=== PATIENT | female | born 1960 | race Caucasian/White ===

== ENCOUNTER 2019-08-07 13:04 | Emergency (ER) | payer OTHER ==
[~2019-08-07] VITALS: Ht 165.1 cm; Wt 54.4 kg
[~2019-08-07 13:04] MED LIST: ALBU90OI6 INH; ALEN70 PO; ALLERCLEAR10 MG; ASPI81CH PO; ATOR80 PO; CLEM1.34; HYDACE5 PO; OXYACE5T PO; PRAV10 PO; RANI150 PO; TRAZ100 PO
[2019-08-07] MEDS ORDERED: BENZ100A PO (16:07)
== END 2019-08-07 16:15 | disposition home or self-care (01) ==
LOC: ER 13:04
DX: J98.8 Other specified respiratory disorders (principal); Z87.891 Personal history of nicotine dependence
CPT/HCPCS: 71046; 99283-25

== ENCOUNTER 2021-11-15 09:45 | Day surgery (SDC) | payer OTHER ==
[~2021-11-15] VITALS: Ht 160 cm; Wt 47.3 kg
[~2021-11-15 09:45] MED LIST changes: +BENZ100A PO
[2021-11-15] MEDS ORDERED: TRAZ50 PO (10:33)
== END 2021-11-15 12:21 | disposition home or self-care (01) ==
LOC: ORSCSDS 09:45
PROVIDERS: Surgery
PROC: 0DJD8ZZ Inspection of Lower Intestinal Tract, Via Natural or Artificial Opening Endoscopic (ICD-10-PCS; principal; 2021-11-15 11:00)
DX: Z12.11 Encounter for screening for malignant neoplasm of colon (principal); Z80.0 Family history of malignant neoplasm of digestive organs; J45.909 Unspecified asthma, uncomplicated; E78.5 Hyperlipidemia, unspecified; F32.A Depression, unspecified; F41.9 Anxiety disorder, unspecified; Z87.891 Personal history of nicotine dependence; Z79.82 Long term (current) use of aspirin; Z79.899 Other long term (current) drug therapy
CPT/HCPCS: J2405; J2704; J7120

== ENCOUNTER 2023-03-28 06:51 | Day surgery (SDC) | payer OTHER ==
[~2023-03-28] VITALS: Ht 162.6 cm; Wt 49.1 kg
[~2023-03-28 06:51] MED LIST changes: +TRAZ50 PO
[2023-03-28] MEDS ORDERED: TRAZ100 PO (07:07)
[2023-03-28] MEDS ORDERED: ANORO ELLIPTA1 EAC1 IH (07:07)
[2023-03-28] MEDS ORDERED: LIPITOR80 MG PO (07:07)
[2023-03-28] MEDS ORDERED: Ventolin/Prove6.7 GM (07:07)
--- NOTE | 2023-03-28 07:21 | NUR ---
03/28/23 0721 Tiara Galan 1 DROP OF TETRACAINE ADMINISTERED TO THE L EYE AT 0707, PLEDGET PLACED IN THE L EYER AT 0708
[2023-03-28 08:29] VITALS: BP 109/67
--- NOTE | 2023-03-28 09:12 | NUR ---
03/28/23 0912 Chinmay Lebron IV REMOVED INTACT. SITE WNL.
== END 2023-03-28 08:40 | disposition home or self-care (01) ==
LOC: ORSCSDS 06:51
PROVIDERS: Student in an Organized Health Care Education/Training Program
PROC: 08RK3JZ Replacement of Left Lens with Synthetic Substitute, Percutaneous Approach (ICD-10-PCS; principal; 2023-03-28 08:00)
DX: H25.13 Age-related nuclear cataract, bilateral (principal); J45.909 Unspecified asthma, uncomplicated; Z87.891 Personal history of nicotine dependence; E78.5 Hyperlipidemia, unspecified; Z85.3 Personal history of malignant neoplasm of breast; Z79.899 Other long term (current) drug therapy; Z79.82 Long term (current) use of aspirin
CPT/HCPCS: J2250; J3010; J7040; V2632

== ENCOUNTER 2023-04-11 06:43 | Day surgery (SDC) | payer OTHER ==
[~2023-04-11] VITALS: Ht 165.1 cm; Wt 52.3 kg
[~2023-04-11 06:43] MED LIST changes: +ANORO ELLIPTA1 EAC1 IH; +LIPITOR80 MG PO; +Ventolin/Prove6.7 GM
[2023-04-11] MEDS ORDERED: Milk Thistle175 M1 (07:03)
--- NOTE | 2023-04-11 07:24 | NUR ---
04/11/23 0724 Sherie Yung PLACED IN RIGHT EYE AT 0704. PLEDGET PLACED IN RIGHT EYE AT 0706. PATIENT TOLERATED WELL.
[2023-04-11 08:22] VITALS: BP 137/78
--- NOTE | 2023-04-11 08:26 | NUR ---
04/11/23 0826 NATANAEL SORENSON IV REMOVED. WNL. FLORES WELL. CANNULA INTACT
== END 2023-04-11 08:35 | disposition home or self-care (01) ==
LOC: ORSCSDS 06:43
PROVIDERS: Student in an Organized Health Care Education/Training Program
PROC: 08RJ3JZ Replacement of Right Lens with Synthetic Substitute, Percutaneous Approach (ICD-10-PCS; principal; 2023-04-11 08:00)
DX: H25.11 Age-related nuclear cataract, right eye (principal); Z96.1 Presence of intraocular lens; J45.909 Unspecified asthma, uncomplicated; E78.5 Hyperlipidemia, unspecified; Z87.891 Personal history of nicotine dependence; Z79.899 Other long term (current) drug therapy
CPT/HCPCS: J2250; J7040; V2632

== ENCOUNTER 2024-08-28 08:33 | Day surgery (SDC) | payer OTHER ==
[~2024-08-28] VITALS: Ht 160 cm; Wt 67.4 kg
[~2024-08-28 08:33] MED LIST changes: +Lactated Ringer's 1,000 ML IV ONE; +Lidocaine HCl 2% 10 ML SDA ONE; +Milk Thistle175 M1
[2024-08-28] MEDS ORDERED: FentaNYL Citrate 50 MCG/ML 2 ML Injection ONE (08:51)
[2024-08-28] MEDS ORDERED: Midazolam HCl 1MG / ML 2ML Vial ONE (08:51)
[2024-08-28] MEDS ORDERED: propofoL 20 ML IV ONE (08:51)
[2024-08-28] MEDS ORDERED: Lactated Ringer's 1,000 ML IV ONE ×2 (09:09→10:36)
[2024-08-28] MEDS ORDERED: Ketorolac Tromethamine 30mg Vial ONE (10:00)
[2024-08-28] MEDS ORDERED: Ondansetron HCl 2 MG / ML 2ML Vial ONE (10:00)
[2024-08-28] MEDS ORDERED: Dexamethasone Sod Phos 10 MG/ML 1ML VIAL ONE (10:00)
[2024-08-28 10:52] VITALS: BP 148/77
--- NOTE | 2024-08-28 10:53 | NUR ---
08/28/24 1053 Soraya Taylor PT TRANSFERRED TO RECLINER W/ MIN ASSIST. PT DENIES PAIN/NAUSEA, VSS, ON RA. NO VISIBLE SIGNS OF DISTRESS NOTED.
== END 2024-08-28 11:40 | disposition home or self-care (01) ==
LOC: ORSCSDS 08:33
PROVIDERS: Orthopaedic Surgery
PROC: 01N54ZZ Release Median Nerve, Percutaneous Endoscopic Approach (ICD-10-PCS; principal; 2024-08-28 10:00)
PROC: 0PBD0ZZ Excision of Left Humeral Head, Open Approach (ICD-10-PCS; principal; 2024-08-28 10:00)
DX: M77.12 Lateral epicondylitis, left elbow (principal); G56.02 Carpal tunnel syndrome, left upper limb; I10 Essential (primary) hypertension; E78.5 Hyperlipidemia, unspecified; J44.9 Chronic obstructive pulmonary disease, unspecified; Z87.891 Personal history of nicotine dependence; J45.909 Unspecified asthma, uncomplicated; Z79.899 Other long term (current) drug therapy; Z79.82 Long term (current) use of aspirin; Z85.3 Personal history of malignant neoplasm of breast
CPT/HCPCS: C1713; J1100; J1885; J2003; J2250; J2405; J2704; J3010; J7120

== ENCOUNTER 2024-09-29 06:26 | Day surgery (SDC) | payer OTHER ==
[~2024-09-29] VITALS: Ht 160 cm; Wt 68.4 kg
[~2024-09-29 06:26] MED LIST changes: -Lactated Ringer's 1,000 ML IV ONE; -Lidocaine HCl 2% 10 ML SDA ONE; +NS 500 ML IV ONE
[2024-09-29] MEDS ORDERED: CeFAZolin Sodium 2,000 MG VIAL ONE (06:38)
[2024-09-29] MEDS ORDERED: MOBIC15 MG PO (07:22)
[2024-09-29] MEDS ORDERED: AMLO5 PO (07:23)
[2024-09-29] MEDS ORDERED: NS 1,000 ML IV ONE (07:32)
--- NOTE | 2024-09-29 07:32 | NUR ---
09/29/24 0732 CHANO TINSLEY 0725 TIMEOUT FOR LOCAL ANESTHETIC INJECTION AT BEDSIDE WITH THIS RN, PT AND BRAUNLICH. 9 CC TOTAL INJECTED AT 0726.
[2024-09-29] MEDS ORDERED: propofoL 20 ML IV ONE (07:47)
[2024-09-29] MEDS ORDERED: Midazolam HCl 1MG / ML 2ML Vial ONE (07:48)
[2024-09-29] MEDS ORDERED: Ketorolac Tromethamine 30mg Vial ONE (07:55)
[2024-09-29 08:34] VITALS: BP 142/81
--- NOTE | 2024-09-29 08:34 | NUR ---
09/29/24 0838 Shila Yepez [id number] MARIVEL RN AT BEDSIDE
== END 2024-09-29 08:30 | disposition home or self-care (01) ==
LOC: ORSCSDS 06:26
PROVIDERS: Orthopaedic Surgery
PROC: 01N54ZZ Release Median Nerve, Percutaneous Endoscopic Approach (ICD-10-PCS; principal; 2024-09-29 08:00)
DX: G56.01 Carpal tunnel syndrome, right upper limb (principal); I10 Essential (primary) hypertension; J45.909 Unspecified asthma, uncomplicated; E78.5 Hyperlipidemia, unspecified; Z79.82 Long term (current) use of aspirin; Z87.891 Personal history of nicotine dependence; Z79.899 Other long term (current) drug therapy
CPT/HCPCS: J0690; J1885; J2250; J2704; J7040